=== PATIENT | female | born 1975 | race Caucasian/White ===

== ENCOUNTER 2019-02-09 07:06 | Outpatient (CLI) | payer OTHER ==
[2019-02-09 12:22] LABS: BASOPHILS % (AUTO) 0.5 %; EOSINOPHILS # (AUTO) 0.1 10^3/uL (0.0-0.7); EOSINOPHILS % (AUTO) 2.4 %; HGB - HEMOGLOBIN 13.2 g/dL (12.0-16.0); LYMPHOCYTES # (AUTO) 1.4 10^3/uL (1.5-3.5); LYMPHOCYTES % (AUTO) 32.3 %; MEAN CORPUSCULAR HEMOGLOBIN 27.6 pg (27.0-31.0); MEAN CORPUSCULAR HGB CONC 31.5 g/dL (32.0-36.0); MEAN CORPUSCULAR VOLUME 87.7 fL (81.0-99.0); MEAN PLATELET VOLUME 10.7 fL (7.9-10.8); MONOCYTES # (AUTO) 0.2 10^3/uL (0.0-1.0); MONOCYTES % (AUTO) 5.5 %; NEUTROPHILS # (AUTO) 2.5 10^3/uL (1.5-6.6); NEUTROPHILS % (AUTO) 58.8 %; PLT - PLATELET COUNT 182 10^3/uL (130-450); RED BLOOD COUNT 4.78 10^6/uL (4.20-5.40); RED CELL DISTRIBUTION WIDTH 12.9 % (12.0-15.0); WHITE BLOOD COUNT 4.2 x10^3/uL (4.8-10.8)
[2019-02-09 12:40] LABS: ALBUMIN 4.2 g/dL (3.2-5.5); ALBUMIN/GLOBULIN RATIO 1.3 (1.0-2.2); ALKALINE PHOSPHATASE 82 IU/L (42-121); ALT ALANINE AMINOTRANSFERASE 52 IU/L (10-60); AST ASPARTATE AMINOTRANSFERASE 36 IU/L (10-42); BILIRUBIN,TOTAL 0.5 mg/dL (0.2-1.0); BUN - BLOOD UREA NITROGEN 15 mg/dL (6-20); CALCIUM 8.8 mg/dL (8.5-10.3); CARBON DIOXIDE - CO2 29 mmol/L (21-32); CHLORIDE 103 mmol/L (101-111); CHOL/HDL RATIO 3.7 (<4.4); CHOLESTEROL 167 mg/dL; CREATININE 0.8 mg/dL (0.4-1.0); GFR - MDRD 79 (>89); GLUCOSE 99 mg/dL (70-100); HDL CHOLESTEROL 45 mg/dL; LDL CHOLESTEROL,CALCULATED 106 mg/dL; LDL/HDL RATIO 2.4 (<4.4); SODIUM 139 mmol/L (135-145); TOTAL PROTEIN 7.5 g/dL (6.7-8.2); VLDL CHOLESTEROL 16 mg/dL
[2019-02-09 13:41] LABS: FREE T4 (FREE THYROXINE) 0.67 ng/dL (0.58-1.64)
== END 2019-02-09 23:59 | disposition home or self-care (01) ==
LOC: LAB.N 07:06
PROVIDERS: ATTEND Nurse Practitioner Gerontology
DX: Z00.00 Encounter for general adult medical examination without abnormal findings (principal); Z83.49 Family history of other endocrine, nutritional and metabolic diseases
CPT/HCPCS: 36415; 80050; 80061; 83721; 84439

== ENCOUNTER 2019-02-22 09:31 | Outpatient (CLI) | payer OTHER ==
--- NOTE | 2019-02-22 11:51 | Mammography Report ---
Reason: ROUTINE MAMMO Procedure Date: 02/22/2019 Accession Number: [id number] / [id number] Procedure: MGN - Screening Mammo Dig Bilat CPT Code: Final Report FULL RESULT: EXAM: Screening Mammo Dig Bilat DATE: 02/22/2019 9:53 AM CLINICAL HISTORY: Screening encounter. Baseline exam. TECHNIQUE: (B) - Bilateral CC, laterally exaggerated CC, MLO views were obtained. COMPARISON: None PARENCHYMAL PATTERN: (A) - The breast(s) demonstrate(s) scattered fibroglandular densities. FINDINGS: There are no suspicious masses, calcifications, or areas of distortion. IMPRESSION: Negative examination. BI-RADS category 1. RECOMMENDATION: (ANNUAL) - Recommend routine annual screening mammography. BI-RADS CATEGORY: (1) - Negative. STANDARD QUALIFYING STATEMENTS: 1. This examination was not reviewed with the aid of Computer-Aided Detection (CAD). 2. A negative or benign imaging report should not preclude biopsy if clinically suspicious findings are present. 3. Dense breasts may obscure an underlying neoplasm. 4. This examination was reviewed without the aid of 3D breast imaging (tomosynthesis).
== END 2019-02-22 09:32 | disposition home or self-care (01) ==
LOC: DI.N 09:31
PROVIDERS: ATTEND Nurse Practitioner Gerontology
DX: Z12.31 Encounter for screening mammogram for malignant neoplasm of breast (principal)
CPT/HCPCS: 77067

== ENCOUNTER 2019-02-27 16:09 | Outpatient (CLI) | payer OTHER ==
--- NOTE | 2019-02-28 13:37 | Ultrasound Report ---
Reason: POST MENOPAUSAL BLEEDING Procedure Date: 02/27/2019 Accession Number: [id number] / [id number] Procedure: US - Pelvic w/Transvaginal CPT Code: Final Report FULL RESULT: EXAM: PELVIC ULTRASOUND EXAM DATE: 02/27/2019 05:57 PM. CLINICAL HISTORY: POST MENOPAUSAL BLEEDING. COMPARISON: None. TECHNIQUE: Realtime transabdominal pelvic scan performed to identify the uterus and adnexa and as an overview of other pelvic structures, followed by transvaginal scan to provide greater detail of the uterus and adnexa, with static image documentation. FINDINGS: Uterus: 7.4 x 3.6 x 4.5 cm, volume 62 cc. Anteverted position. Normal overall size and echotexture. scar Masses: None. Endometrium: 6 mm. Thickened. No definite mass. Portions of endometrium difficult to see due to overlying bowel gas Cervix: Unremarkable. Right Ovary: Not identified Left Ovary: Not identified Free Fluid: None. Other: None. IMPRESSION: 1. Endometrium is mildly thickened. 2. Ovaries not identified RADIA
== END 2019-02-27 16:10 | disposition home or self-care (01) ==
LOC: DI 16:09
PROVIDERS: ATTEND Nurse Practitioner Gerontology
DX: N95.0 Postmenopausal bleeding (principal); R10.30 Lower abdominal pain, unspecified; R93.89 Abnormal findings on diagnostic imaging of other specified body structures
CPT/HCPCS: 76830; 76856

== ENCOUNTER 2019-04-08 07:25 | Outpatient (CLI) | payer OTHER | END 2019-04-08 23:59 | disposition home or self-care (01) | LOC: LAB.N 07:25 | PROVIDERS: ATTEND Nurse Practitioner Gerontology | DX: E03.9 Hypothyroidism, unspecified (principal) | CPT/HCPCS: 36415; 84443 ==